=== PATIENT | male | born 1950 | race Caucasian/White ===

== ENCOUNTER 2023-04-08 18:21 | Outpatient (REF) | payer MEDICARE, SELFPAY | END 2023-04-08 18:22 | disposition home or self-care (01) | LOC: LAB 18:21 | PROVIDERS: PCP Nurse Practitioner Primary Care; Visit Provider Physician Assistant | DX: N39.0 Urinary tract infection, site not specified (principal) | CPT/HCPCS: 87086; 87150; 87186 ==